=== PATIENT | male | born 1980 | race Two or more races ===

== ENCOUNTER 2019-05-11 21:31 | Emergency (ER) | payer BC, OTHER ==
--- NOTE | 2019-05-11 21:33 | PDOC ---
Rapid Medical Evaluation Time Seen by Provider: 05/11/19 21:32 Medical Evaluation: Allergies Allergy/AdvReac Type Severity Reaction Status Date / Time No Known Allergies Allergy Verified 07/21/16 22:41 05/11/19 21:32 HPI: R thumb laceration occurred while using a knife at home; Tetanus UTD PE: Wound not visualized ORDERS Nothing Discharge Disposition - Diagnosis Finger laceration - Referrals - Patient Instructions - Post Discharge Activity
[2019-05-11 21:34] VITALS: BP 138/95; PULSE 93; TEMP 98.3; BMI 25.0
--- NOTE | 2019-05-11 23:15 | PDOC ---
Attending Attestation - Resident Resident Name: Avi Santizo - ED Attending Attestation I have performed the following: I have examined & evaluated the patient, The case was reviewed & discussed with the resident, I agree w/resident's findings & plan - HPI HPI: 05/11/19 23:48 see resident hpi - Physicial Exam PE: 05/11/19 23:48 agree with resident exam - Medical Decision Making 05/11/19 23:48 38 yo male with right hand laceration lac repair by ED resident tD update d/c, wound care instructions
[2019-05-11] MEDS ORDERED: ACETAMINOPHEN 500 MG TABLET (FP) PO ONE (23:35)
[2019-05-11] MEDS ORDERED: ONDANSETRON *ODT* 4 MG TABLET SL ONE (23:35)
--- NOTE | 2019-05-11 23:38 | PDOC ---
History of Present Illness - General Chief Complaint: Laceration Stated Complaint: FINGER LACERATION Time Seen by Provider: 05/11/19 21:32 - History of Present Illness Initial Comments: 05/11/19 23:35 Patient is a 38 yo male w/ no pmh who presents for evaluation after accidentally cutting R thumb while working on a project earlier this evening. Patient reports his last tetanus was approximately 2 years ago. Denies other complaints at this time. The patient denies chest pain, shortness of breath, headache and dizziness. Denies fever, chills, nausea, vomit, diarrhea and constipation. Denies dysuria, frequency, urgency and hematuria. Past History - Past Medical History Allergies/Adverse Reactions: Allergies Allergy/AdvReac Type Severity Reaction Status Date / Time No Known Allergies Allergy Verified 05/11/19 21:35 Home Medications: Ambulatory Orders NK [No Known Home Medication] 07/21/16 COPD: No - Immunization History Td Vaccination: Yes - Psycho Social/Smoking Cessation Hx Smoking History: Never smoked Hx Alcohol Use: No Drug/Substance Use Hx: No Substance Use Type: None Review of Systems - Review of Systems Comments:: 05/11/19 23:36 GENERAL/CONSTITUTIONAL: No fever or chills. No weakness. HEAD, EYES, EARS, NOSE AND THROAT: No change in vision. No ear pain or discharge. No sore throat. CARDIOVASCULAR: No chest pain or shortness of breath RESPIRATORY: No cough, wheezing, or hemoptysis. GASTROINTESTINAL: No nausea, vomiting, diarrhea or constipation. GENITOURINARY: No dysuria, frequency, or change in urination. MUSCULOSKELETAL: +R thumb pain SKIN: No rash NEUROLOGIC: No headache, vertigo, loss of consciousness, or change in strength/ sensation. ENDOCRINE: No increased thirst. No abnormal weight change HEMATOLOGIC/LYMPHATIC: No anemia, easy bleeding, or history of blood clots. ALLERGIC/IMMUNOLOGIC: No hives or skin allergy. *Physical Exam - Vital Signs Last Vital Signs Temp Pulse Resp BP Pulse Ox 98.3 F 93 H 18 138/95 97 05/11/19 21:32 05/11/19 21:32 05/11/19 21:32 05/11/19 21:32 05/11/19 21:32 - Physical Exam Comments: 05/11/19 23:36 GENERAL: Awake, alert, and fully oriented, in no acute distress HEAD: No signs of trauma, normocephalic, atraumatic EYES: PERRLA, EOMI, sclera anicteric, conjunctiva clear ENT: Auricles normal inspection, hearing grossly normal, nares patent, oropharynx clear without exudates. Moist mucosa NECK: Normal ROM, supple, no lymphadenopathy, JVD, or masses LUNGS: No distress, speaks full sentences, clear to auscultation bilaterally HEART: Regular rate and rhythm, normal S1 and S2, no murmurs, rubs or gallops, peripheral pulses normal and equal bilaterally. ABDOMEN: Soft, nontender, normoactive bowel sounds. No guarding, no rebound. No masses EXTREMITIES: +R thumb laceration noted at base of thumb approx. 3 cm in length. Otherwise Normal inspection, Normal range of motion, no edema. No clubbing or cyanosis. NEUROLOGICAL: Cranial nerves II through XII grossly intact. Normal speech, normal gait, no focal sensorimotor deficits SKIN: Warm, Dry, normal turgor, no rashes or lesions noted. Procedures - Laceration/Wound Repair Right Anterior Hand 1st digit Wound Length: 2.6 to 5.0 cm Wound Explored: clean Wound's Depth, Shape: superficial, irregular Irrigated w/ Saline: Yes Anesthesia: 1% Lidocaine Amount of Anesthetic (ccs): 3 Wound Debrided: minimal Wound Repaired With: Sutures Suture Size/Type: 3:0 Number of Sutures: 5 Medical Decision Making - Medical Decision Making 05/11/19 23:38 Patient is a 38 yo male w/ laceration as described. Patient sutured and will f/ u in 10-14 days for suture removal. Discharging to home. Discharge - Discharge Information Problems reviewed: Yes Clinical Impression/Diagnosis: Finger laceration Qualifiers: Encounter type: initial encounter Finger: thumb Damage to nail status: without damage Foreign body presence: without foreign body Laterality: right Qualified Code(s): S61.011A - Laceration without foreign body of right thumb without damage to nail, initial encounter Disposition: HOME - Follow up/Referral - Patient Discharge Instructions Patient Printed Discharge Instructions: DI for Laceration Repair Additional Instructions: You were evaluated today in the ER for your laceration. We cleaned and closed your cut with 5 3-0 sutures. Please follow-up in 10-14 days for suture removal. You may take motrin or tylenol per package instructions for pain control. Return to ER if any fever, chills, pain, or other concerning symptoms. - Post Discharge Activity
[2019-05-11] MEDS ORDERED: ONDANSETRON *ODT* 4 MG TABLET ONE (23:41)
[2019-05-11] MEDS ORDERED: ACETAMINOPHEN 325 MG TABLET (FP) ONE (23:41)
== END 2019-05-11 23:59 | disposition home or self-care (01) ==
LOC: JER 21:31 → JERFT 21:31 → JER 23:59
PROC: 0HQFXZZ Repair Right Hand Skin, External Approach (ICD-10-PCS; principal; 2019-05-11)
DX: S61.011A Laceration without foreign body of right thumb without damage to nail, initial encounter (principal); W26.0XXA Contact with knife, initial encounter; Y93.89 Activity, other specified; Y92.038 Other place in apartment as the place of occurrence of the external cause; Y99.8 Other external cause status
CPT/HCPCS: 99281-25; Q0162